=== PATIENT | female | born 1985 | race Caucasian/White ===

== ENCOUNTER 2019-10-03 09:43 | Emergency (ER) | payer SELFPAY ==
[~2019-10-03] VITALS: Ht 175.3 cm; Wt 86.0 kg
--- NOTE | 2019-10-03 09:59 | NUR ---
PATIENT BROUGHT BACK FROM TRIAGE WITH CHIEFT COMPLAINT OF RASH, & N/V FOR ONE MONTH. PATIENT REPORTS BEING EVALUATED AT [facility], HOWEVER RELEASED WITH NO INTERVENTIONS. THE PATIENT IS ALERT ORIENTED WARM AND DRY. RASH LOCATED ON CHEST, ARMPITS AND BACK OF KNEES.
[2019-10-03] MEDS ORDERED: PENICILLIN VK 500MG TABLET PO ONE (10:27)
[2019-10-03] MEDS ORDERED: MUPIROCIN OINT 2%, 22GM TP SCH (10:27)
[2019-10-03] MEDS ORDERED: PENICILLIN VK 500MG TABLET ONE (10:53)
[2019-10-03 10:56] VITALS: BP 123/72
--- NOTE | 2019-10-03 10:56 | NUR ---
DISCHARGE INSTRUCTIONS REVIEWED
--- NOTE | 2019-10-03 11:34 | NUR ---
Patient dc'd prior to being given mediation that was later tubed from pharmacy. Called patients phone number that is on file and left message telling her she can return to the ED and get this medication that will be located at the full charge bookkeeper desk.
== END 2019-10-03 11:14 | disposition home or self-care (01) ==
LOC: ED 10:45
DX: L01.01 Non-bullous impetigo (principal); Z90.710 Acquired absence of both cervix and uterus
CPT/HCPCS: 99283

== ENCOUNTER 2019-10-20 11:33 | Emergency (ER) | payer SELFPAY ==
[~2019-10-20] VITALS: Ht 175.3 cm; Wt 85.4 kg
[2019-10-20 11:39] VITALS: BP 111/84
--- NOTE | 2019-10-20 11:53 | NUR ---
AMBULATORY TO ED ROOM 30 W/ STEADY GAIT. PT REPORTS SHE'S BEEN TO ALL 3 HOSPITALS AND NO ONE CAN FIGURE OUT WHAT THIS IS; HAS BEEN TO [facility] TWICE - LAST VISIT 2018. SCABBED LESION POSTERIOR RT KNEE, BETWEEN BREASTS AND BASE OF NECK BILAT. STARTED ABOUT 1-1/2 MONTHS AGO. APPLIED ANTIBIOTIC CREAM - UNKNOWN NAME. REPORTS SHE WAS DX'D W/ SHINGLES LAST YEAR. RESP EVEN & UNLABORED, SPEECH CLEAR, SKIN OTHERWISE WNL. PT'S "ADOPTED SISTER" IN ROOM.
--- NOTE | 2019-10-20 11:55 | NUR ---
PT REQUESTING "SOMETHING TO PUT UNDER MY KNEE" FOR LESION. CHUX PLACED.
--- NOTE | 2019-10-20 12:55 | NUR ---
received report from Maria Alejandra. pt upright on gurney awake & calm, responds approp to staff, comfort measures provided, friend at BS, call light within reach. Dr Shah at BS.
--- NOTE | 2019-10-20 12:56 | NUR ---
PT ENDORSED TO BREAK RN: BOGDAN
[2019-10-20] MEDS ORDERED: NEOSPORIN OINT. PKT 1 PACKET ONE (13:08)
--- NOTE | 2019-10-20 13:37 | NUR ---
Patient given wound care, discharge instructions and Rx, they have confirmed that they understand the instructions. Patient ambulatory with steady gait.
== END 2019-10-20 13:46 | disposition home or self-care (01) ==
LOC: ED 13:34
DX: L03.115 Cellulitis of right lower limb (principal); L20.84 Intrinsic (allergic) eczema
CPT/HCPCS: 99283